=== PATIENT | female | born 1955 | race Two or more races ===

== ENCOUNTER 2023-02-06 21:18 | Emergency (ER) | payer OTHER ==
[~2023-02-06] VITALS: Ht 157.5 cm; Wt 77.3 kg
[2023-02-06] MEDS ORDERED: MORPHINE SULFATE 4 MG/ML SYR/VIAL IV ONE (21:45)
[2023-02-06 23:45] VITALS: BP 145/77; PULSE 80; RESP 21; O2SAT 96
== END 2023-02-07 00:23 | disposition home or self-care (01) ==
LOC: ER 21:18 → EDBD 21:18 → ER 02-07 00:23
DX: M25.562 Pain in left knee (principal); X50.1XXA Overexertion from prolonged static or awkward postures, initial encounter; Y93.89 Activity, other specified; Y92.89 Other specified places as the place of occurrence of the external cause; Y99.8 Other external cause status
CPT/HCPCS: 73562; 73590; 96374; 99284; J2270

== ENCOUNTER 2025-01-04 22:48 | Emergency (ER) | payer OTHER ==
[~2025-01-04] VITALS: Ht 154.9 cm; Wt 77.2 kg
[2025-01-04] MEDS: SODIUM CHLORIDE 0.9% 1,000 ML IVB ONE (02:55)
--- NOTE | 2025-01-04 23:14 | ED.PDOC ---
GI ASSESSMENT HPI Comments 69-year-old female complains of right-sided abdominal pain radiating to her right flank for the last 2 days. Pain is sharp and moderate to severe in intensity. Associated with some nausea and occasional vomiting Chief Complaint: Abdominal Pain Time Seen by MD: 23:01 Allergies: Coded Allergies: Acetaminophen (Verified Allergy, Unknown, 01/04/25) Iodine (Verified Allergy, Unknown, 01/04/25) Propoxyphene (Verified Allergy, Unknown, 01/04/25) Information Source: Patient, Emergency Med Personnel Mode of Arrival: EMS Timing: Days Duration: Since onset Quality: Aching, Sharp Past Medical History PAST MEDICAL HISTORY: HTN Surgical History: Cholecystectomy Constitutional: reports: malaise Gastrointestinal: reports: abdominal pain, nausea, vomiting Genitourinary: reports: flank pain All Other Systems: Reviewed and Negative Physical Exam General Appearance: Moderate Distress HEENT: Normal ENT Inspection, Pharynx Normal, TMs Normal Neck: Full Range of Motion, Non-Tender, Normal, Normal Inspection Respiratory: Chest Non-Tender, Lungs Clear, No Accessory Muscle Use, No Respiratory Distress, Normal Breath Sounds Cardiovascular: No Edema, No JVD, No Murmur, No Gallop, Normal Peripheral Pulses, Regular Rate/Rhythm Breast Exam: Deferred Gastrointestinal: Soft, Tenderness Genitalia: Deferred Pelvic: Deferred Rectal: Deferred Extremities: No calf tenderness, Normal capillary refill, Normal inspection, Normal range of motion, Non-tender, No pedal edema Musculoskeletal : Apperance: Normal Neurologic: Alert, 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 Was a procedure done?: No GI differential Dx Differential Diagnosis: Appendicitis, Diverticular disease, Gastritis/PUD, Gastroenteritis, GI hemorrhage, Pancreatitis, Kidney Stone, Other X-Ray, Labs, Meds, VS Vital Signs Date Time Temp Pulse Resp B/P (MAP) Pulse Ox O2 Delivery O2 Flow Rate FiO2 01/04/25 23:00 99.0 81 18 170/90 95 99.0 Lab Test 01/04/25 23:20 01/04/25 23:00 Range/Units White Blood Count 12.8 H 4.4-10.8 10^3/uL Red Blood Count 4.70 4.0-5.20 10^6/uL Hemoglobin 14.0 12.2-16.2 g/dL Hematocrit 39.9 36.0-46.0 % Mean Corpuscular Volume 84.8 80.0-100.0 fL Mean Corpuscular Hemoglobin 29.7 28.0-32.0 pg Mean Corpuscular Hemoglobin Concent 35.0 32.0-36.0 g/dL Red Cell Distribution Width 13.2 11.8-14.3 % Platelet Count 659 H 140-450 10^3/uL Mean Platelet Volume 7.1 6.9-10.8 fL Neutrophils (%) (Auto) 94.1 H 37.0-80.0 % Lymphocytes (%) (Auto) 2.7 L 10.0-50.0 % Monocytes (%) (Auto) 3.1 0.0-12.0 % Eosinophils (%) (Auto) 0.0 0.0-7.0 % Basophils (%) (Auto) 0.1 0.0-2.0 % Neutrophils # (Auto) 12.0 H 1.6-8.6 10 ^3/uL Lymphocytes # (Auto) 0.3 L 0.4-5.4 10 ^3/uL Monocytes # (Auto) 0.4 0-1.3 10 ^3/uL Eosinophils # (Auto) 0 0-0.8 10 ^3/uL Basophils # (Auto) 0 0-0.2 10 ^3/uL Nucleated Red Blood Cells 0.0 % Sodium Level 131 L 136-145 mmol/L Potassium Level 3.9 3.5-5.1 mmol/L Chloride Level 94 L 98-107 mmol/L Carbon Dioxide Level 22 20-31 mmol/L Anion Gap 15 5-15 Blood Urea Nitrogen 9 9-23 mg/dL Creatinine 0.49 L 0.550-1.02 mg/dL Glomerular Filtration Rate Calc 101 >90 mL/min BUN/Creatinine Ratio 18.4 10.0-20.0 Serum Glucose 190 H 74-106 mg/dL Calcium Level 10.3 8.7-10.4 mg/dL Total Bilirubin 5.0 H 0.2-1.0 mg/dL Aspartate Amino Transferase (AST) 542 H 13-40 U/L Alanine Aminotransferase (ALT) 493 H 7-40 U/L Alkaline Phosphatase 573 H 46-116 U/L Total Protein 7.9 5.7-8.2 g/dL Albumin 4.6 3.2-4.8 g/dL Lipase 42 12-53 U/L Urine Color Pending Urine Clarity Pending Urine pH Pending Urine Specific Dickens Pending Urine Protein Pending Urine Ketones Pending Urine Blood Pending Urine Nitrite Pending Urine Bilirubin Pending Urine Urobilinogen Pending Urine Leukocyte Esterase Pending Urine RBC Pending Urine Microscopic WBC Pending Urine Squamous Epithelial Cells Pending Urine Bacteria Pending Urine Glucose Pending Time of 1ST Reevaluation: 23:13 Reevaluation 1ST: Unchanged Patient Education/Counseling: Diagnosis, Treatment Family Education/Counseling: No Family Present SEPSIS Sepsis Screen Date sepsis recognized/suspect: Jan 04, 2025 Time Sepsis recognized/suspect: 2302 Recent Procedure: No On Antibiotic Therapy: No Respiratory Rate >20: No Heart Rate >90: No Temp<36 C (96.8 F) or >38.3 C: No SBP <90 or MAP <65 mmHG: No New Acute Mental Status Change: No Is the patient on CPAP, BIPAP,: No Physician Orders Urinalysis (01/04/25 23:09) Ct Ab Pel Wo Con-No Oral Or Iv (01/04/25 23:09) Lactic Acid W/ Reflex Order (01/05/25 00:57) Blood Culture (01/05/25 00:57) Vital Signs Date Time Temp Pulse Resp B/P (MAP) Pulse Ox O2 Delivery O2 Flow Rate FiO2 01/04/25 23:00 99.0 81 18 170/90 95 99.0 Laboratory Tests Test 01/04/25 23:20 White Blood Count 12.8 10^3/uL (4.4-10.8) H Departure 1 Departure Time of Disposition: 00:30 Impression: Primary Impression: Right sided abdominal pain Additional Impressions: Transaminitis Hyperbilirubinemia Disposition: 02 [facility]ORT TERM [facility]OSPITAL Admit to: transfer Condition: Guarded Discharged With: Self Comments 69-year-old female with a history of prior cholecystectomy and gastric bypass now with severe right-sided abdominal pain. Her lab tests showed elevated white count of 12.6. Her liver enzymes are quite elevated as well as her bilirubin. CT of the abdomen and pelvis shows no obvious acute pathology. Patient continues to have pain on re-evaluation. I will contact [facility] for possible transfer. I discussed the case with [facility] transfer center. They are arranging to have the patient transferred to a [facility] facility for further workup. Authorization number from [facility] was [id number] Critical Care Note Critical Care Time?: No Stability Stability form required: No Heart Score Heart Score: Heart Score Response (Comments) Value History N/A 0 EKG N/A 0 Age N/A 0 Risk Factors N/A 0 Troponin N/A 0 Total 0 FOREIGN CARREON MD Jan 04, 2025 23:14
[2025-01-04 23:34] LABS: Hemoglobin 14.0 g/dL (12.2-16.2); Mean Corpuscular Volume 84.8 fL (80.0-100.0)
[2025-01-04 23:36] LABS: Hematocrit 39.9 % (36.0-46.0); Mean Corpuscular Hemoglobin 29.7 pg (28.0-32.0); Nucleated Red Blood Cells % 0.0 %
[2025-01-04 23:54] LABS: Albumin 4.6 g/dL (3.2-4.8); Anion Gap 15 (5-15); BUN/Creatinine Ratio 18.4 (10.0-20.0); Calcium 10.3 mg/dL (8.7-10.4); Carbon Dioxide 22 mmol/L (20-31); Lipase 42 U/L (12-53); Potassium 3.9 mmol/L (3.5-5.1); Total Protein 7.9 g/dL (5.7-8.2)
[2025-01-04 23:59] LABS: Alanine Aminotransferase 493 U/L (7-40); Alkaline Phosphatase 573 U/L (46-116); Bilirubin, Total 5.0 mg/dL (0.2-1.0); Blood Urea Nitrogen 9 mg/dL (9-23); Chloride 94 mmol/L (98-107); Glucose 190 mg/dL (74-106); Sodium 131 mmol/L (136-145)
--- NOTE | 2025-01-05 00:03 | DVH ---
Exam: CT CT AB PEL WO CON-NO ORAL OR IV History: right sided abd pain Comparison Study: None Technique: Multidetector spiral CT of the abdomen was performed from lung bases to pubic symphysis. I maging was performed without IV contrast. Axial, coronal and sagittal multiplanar reformats were obta ined from the axial data set by the technologist. Radiation dose : 1. Abdomen/Pelvis: CTDIvol 23.13 mGy, DLP 1088.25 mGy*cm. Findings: Evaluation of solid organs is limited due to lack of intravenous contrast use. Lung Bases: No acute or significant lung base finding. Normal heart size. No pleural or pericardial effusion. Liver: The liver is normal in size. No focal lesions. Gallbladder and biliary Tree: Gallbladder is surgically absent. Spleen: Unremarkable Pancreas: The pancreas is grossly normal in appearance. Adrenal Glands: Unremarkable Kidneys: Kidneys are grossly normal without calculi or hydronephrosis. Bladder: Grossly unremarkable for degree of distention. Bowel: Prior gastric bypass. Small bowel and colon are normal in caliber and distribution. The appen vincent is not visualized; however, no secondary findings of acute appendicitis identified. Small hiatal hernia. Colonic diverticulosis. Ascites: Absent Lymphadenopathy: No mesenteric, retroperitoneal or periportal lymphadenopathy. Abdominal wall and Mesentery: Unremarkable. Vasculature: The visualized abdominal aorta is normal in size and caliber. Evaluation of abdominal a nd pelvic vessels is limited due to lack of intravenous contrast. Pelvic Organs: Unremarkable Musculoskeletal: No aggressive focal bony lesions, acute fractures or dislocation. 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 IMPRESSION: No acute abdominal or pelvic findings. Radiation optimization: All CT scans at this facility use at least one of these dose optimization tony hniques: automated exposure control mA and/or kV adjustment per patient size (includes targeted exam s where dose is matched to clinical indication) or iterative reconstruction.
[2025-01-05 01:33] LABS: Urine Protein, UAD TRACE (Negative)
[2025-01-05] MEDS: MORPHINE SULFATE 4 MG/ML SYR/VIAL IV ONE (03:23)
[2025-01-05] MEDS: ONDANSETRON HCL 4 MG/2 ML VIAL IV ONE (03:24)
[2025-01-05 03:52] VITALS: PULSE 108; RESP 18; O2SAT 98
[2025-01-05 04:00] VITALS: BP 148/82; PULSE 90; RESP 18; TEMP 99.5; O2SAT 94
== END 2025-01-05 04:18 | disposition short-term general hospital (02) ==
LOC: ER 22:48 → EDBD 22:48 → ER 01-05 00:56
DX: R10.9 Unspecified abdominal pain (principal); R74.01 Elevation of levels of liver transaminase levels; R17 Unspecified jaundice; I10 Essential (primary) hypertension; Z90.49 Acquired absence of other specified parts of digestive tract; Z88.8 Allergy status to other drugs, medicaments and biological substances
CPT/HCPCS: 36415; 74176; 80053; 81001; 83605; 83690; 85025; 87040; 87077; 87186; 96361; 96374; 96375; 99285; J2270; J2405; J7030